=== PATIENT | female | born 1975 | race Caucasian/White ===

== ENCOUNTER → 2016-11-23 | Outpatient (CLI) | payer MEDICAID | LOC: FIMAGING 10:01 | PROVIDERS: ATTEND Internal Medicine Pulmonary Disease | DX: R06.9 Unspecified abnormalities of breathing (principal) ==

== ENCOUNTER 2017-08-28 21:01 | Emergency (ER) | payer MEDICAID, OTHER ==
[2017-08-28 21:06] VITALS: BP 122/92; PULSE 85; RESP 16; TEMP 98.4; O2SAT 94
--- NOTE | 2017-08-28 22:28 | EDPHY ---
H & P Stated Complaint: bilat flank pain HPI/ROS: Patient was not seen. She left prior to me seeing or evaluating her. Source: Patient - Personal History LMP (Females 10-55): 1-7 Days Ago Current Tetanus/Diphtheria Vaccine: Yes Current Tetanus Diphtheria and Acellular Pertussis (TDAP): Yes Tetanus Vaccine Date: < 10 years - Medical/Surgical History Hx Asthma: No Hx Chronic Respiratory Disease: No Hx Diabetes: No Hx Cardiac Disease: No Hx Renal Disease: No Hx Cirrhosis: No Hx Alcoholism: No Hx HIV/AIDS: No Hx Splenectomy or Spleen Trauma: No Other PMH: pneumonia 2013, PTSD, L4-S1 discectomy - Social History Smoking Status: Former smoker Constitutional: Initial Vital Signs Temperature (C) 36.9 C 08/28/17 21:03 Heart Rate 85 08/28/17 21:03 Respiratory Rate 16 08/28/17 21:03 Blood Pressure 122/92 H 08/28/17 21:03 O2 Sat (%) 94 08/28/17 21:03 O2 Delivery Mode Room Air Allergies/Adverse Reactions: No Known Allergies Allergy (Verified 08/28/17 21:06) Home Medications: Medication Instructions Recorded Sertraline HCl [Zoloft 50mg (*)] 50 mg PO HS 06/19/15 buPROPion [Wellbutrin] 08/28/17 Departure - Departure Disposition: Home, Routine, Self-Care Condition: Good Referrals: Reta Escobedo MD [Primary Care Provider] - As per Instructions
[2017-08-28 22:41] LABS: COLOR YELLOW; LEUKOCYTE ESTERASE,URINE NEGATIVE (NEGATIVE); NITRITE,URINE NEGATIVE (NEGATIVE)
== END 2017-08-28 22:47 | disposition left against medical advice (07) ==
DX: Z53.21 Procedure and treatment not carried out due to patient leaving prior to being seen by health care provider (principal); Z87.891 Personal history of nicotine dependence